=== PATIENT | female | born 1985 | race Two or more races ===

== ENCOUNTER 2016-11-18 22:54 | Inpatient (IN) | payer MEDICAID ==
[2016-11-18 23:16] VITALS: BMI 27.4
[2016-11-19] MEDS ORDERED: LACTATED RINGERS 1,000 ML IV PRN (00:05)
[2016-11-19] MEDS ORDERED: OXYTOCIN IN LR 500 ML IV ONE ×2 (00:05→00:43)
[2016-11-19] MEDS ORDERED: IV START KIT ONE (00:05)
[2016-11-19] MEDS ORDERED: SODIUM CHLORIDE 0.9% FLUSH 20 ML ONE (00:06)
[2016-11-19 00:28] LABS: HEMATOCRIT 37.3 % (37.0-47.0); HEMOGLOBIN 12.8 gm/l (12.0-16.0); MEAN CELL VOLUME 96.1 fl (81.0-99.0); MEAN CORPUSCULAR HGB CONC 34.3 g/dl (33.0-37.0); RED CELL DISTRIBUTION WIDTH 13.9 % (11.5-14.5)
--- NOTE | 2016-11-19 00:30 | PDOC36 ---
Provider Note Subject: cc: Admission H&P HPI: 31 y.o. year old LUCIUS 11/15/2016, by Ultrasound at 40w4d. ROM at 1700 and increasing ctx. REVIEW OF SYSTEMS GENERAL: No fever or headache EYES: No double or blurry vision. CARDIOVASCULAR: No chest pain. RESPIRATORY: No severe shortness of breath or cough. GASTROINTESTINAL: No nausea or vomiting or right upper quadrant pain. PSYCHIATRIC: No anxiety or depression. PROBLEMS Patient Active Problem List Diagnosis Date Noted Abnormal glucose in , antepartum 05/04/2016 Supervision of normal in second trimester 05/04/2016 OB HISTORY #: 1, Date: 01/08/11, Sex: Male, Weight: 3.714 kg (8 lb 3 oz), GA: 42w0d, Delivery: Vaginal, Spontaneous Delivery, Apgar1: 9, Apgar5: 9, Living: Yes, Comments: None #: 2, Date: 04/30/13, Sex: Male, Weight: 3.771 kg (8 lb 5 oz), GA: 39w0d, Delivery: Vaginal, Spontaneous Delivery, Apgar1: 9, Apgar5: 9, Living: Yes, Comments: None #: 3, Current Dating Dating Summary Working LUCIUS: 11/15/16 set by DINA Macias on 07/06/16 based on Ultrasound on 06/30/16 Based On LUCIUS GA Dif Comments GA Cyc Lut BC Entered By Date Last Menstrual Period on 01/30/16 (Approximate) 11/05/16 +1w3d DINA Macias 07/06/16 Ultrasound on 06/30/16 11/15/16 Working Changes EDC. Female. Anterior, grade 1 placenta and low. Survey was normal. Re-scanned in 8 weeks to confirm dates and to recheck placenta. 20w2d DINA Macias 07/06/16 Ultrasound on 08/30/16 11/12/16 +3d Consistent with 1st ultrasound. Female. Normal fluid. Anterior placenta, grade 1 and no previa. Transverse presentation. Estimated weight 1359 g. 29w3d Kim Valles MD PSH No past surgical history SOC HX reports that she has never smoked. She has never used smokeless tobacco. She reports that she does not drink alcohol or use illicit drugs. ALL No Known Allergies MEDICATIONS Current outpatient prescriptions: 27-1 MG tablet, Take 1 tablet by mouth daily., Disp: 100 each, Rfl: 3 PHYSICAL EXAMINATION VITAL SIGNS: VSS Estimated body mass index is 28.00 kg/(m^2) as calculated from the following: Height as of 11/15/16: 1.62 m (5' 3.78"). Weight as of 11/16/16: 73.483 kg (162 lb). Total weight gain is 14.515 kg (32 lb) FHT: 130's baseline, mod kellen [place]: Q3-5 min SVE: 6/90/0 GENERAL: No distress CARDIOVASCULAR: Regular rate and rhythm, no murmur RESPIRATORY: Clear to auscultation bilaterally, respiratory effort is nonlabored at rest. GASTROINTESTINAL: Gravid no fundal tenderness LABS & STUDIES O+ Antibody- Rubella Immune Hep B- HIV- GC/Chlamydia- Trep- glucola elevated but GTT wnl Hgb 11.8 GBS neg ASSESSMENT 31 y.o. year old LUCIUS 11/15/2016, by Ultrasound at 40w4d who presents with AROM and active labor. PLAN Labor- expectant management. FWB- category 1 GBS neg RH+ Pain natural.
[2016-11-19] MEDS ORDERED: LIDOCAINE 1% (PRES FREE) 30 ML VIAL ONE (00:42)
[2016-11-19] MEDS ORDERED: OXYTOCIN 10 UNITS/ML VIAL ONE (00:42)
[2016-11-19] MEDS ORDERED: MINERAL OIL 25 ML BOT ONE (00:42)
[2016-11-19] MEDS ORDERED: PUMP TUBING ONE (00:42)
[2016-11-19] MEDS ORDERED: LIDOCAINE Viscous 2% 15 ML UDCUP ONE (00:42)
[2016-11-19] MEDS ORDERED: MENTHOL/CETYLPYRD 1 EACH LOZENGE PO PRN (00:58)
--- NOTE | 2016-11-19 02:10 | PCMDEL ---
Delivery Note - Labor 1st stage (hr/min):: 1hour 36 min 2nd stage (hr/min):: 3 min 3rd stage (hr/min):: 5 min Total (hr/min):: 2 hours Pushed (hr/min):: 3 min - Delivery Delivery (Date): 11/19/16 Delivery (Time): 01:54 Presentation: Cephalic Position: OA Umbilical Cord: 3 Vessel Delayed Cord Clamping:: < 1-2 min 1 Minute Total: 9 5 Minute Total: 9 Placenta:: intact Comments:: Presented in active labor and progressed on normal labor curve. Pushed effectively to deliver via without complications. Vigorous . Delayed cord clamping x 90 sec. Active third stage with pitocin and fundal massage.
[2016-11-19] MEDS ORDERED: BENZOCAINE/MENTHOL 60 APPLIC/BOT TP PRN (02:11)
[2016-11-19] MEDS ORDERED: MAGNESIUM HYDROXIDE 30 ML UDCUP PO PRN (02:11)
[2016-11-19] MEDS ORDERED: HYDROCODONE/ACETAMINOPHEN 5/325MG TABLET PO PRN (02:11)
[2016-11-19] MEDS ORDERED: LANOLIN 50 APPLIC/7G TUBE TP PRN (02:11)
[2016-11-19] MEDS ORDERED: DOCUSATE SODIUM 100 MG CAPSULE PO PRN (02:11)
[2016-11-19] MEDS: MENTHOL/CETYLPYRD 1 EACH LOZENGE PO PRN ×2 (03:08→20:24)
[2016-11-19] MEDS: IBUPROFEN 800 MG TABLET PO PRN (20:24)
[2016-11-20] MEDS: MENTHOL/CETYLPYRD 1 EACH LOZENGE PO PRN ×2 (00:57→06:07)
[2016-11-20] MEDS: IBUPROFEN 800 MG TABLET PO PRN (06:07)
[2016-11-20 06:26] LABS: HEMOGLOBIN 11.5 gm/l (12.0-16.0)
--- NOTE | 2016-11-20 11:10 | PDOC44 ---
- Subjective Day: 1 Reports Flatus, Reports Pain Tolerable, Reports , Reports Lochia Light, Reports Tolerating Regular Diet, Denies Nausea, Denies Fever - Objective Temp Pulse Resp BP Pulse Ox 97.6 F 62 16 97/56 11/20/16 07:47 11/20/16 07:47 11/20/16 07:47 11/20/16 07:47 Lab Results 11/20/16 05:30 Hgb 11.5 L Hct 35.0 L Current Medications Generic Name Dose Route Start Last Admin Trade Name Freq PRN Reason Stop Dose Admin Acetaminophen/Hydrocodone Bitart 1 - 2 tab 11/19/16 02:11 Hanna 5/325 PO Q4H PRN Pain (Moderate) Benzocaine/Menthol 1 applic 11/19/16 02:11 Dermoplast TP PRN PRN Patient Comfort Benzocaine/Menthol 1 each 11/19/16 02:49 11/20/16 06:07 Cepacol PO 1 each Q2H PRN Administration Sore Throat Docusate Sodium 100 mg 11/19/16 02:11 11/19/16 20:24 Colace PO 100 mg DAILY PRN Administration Comfort Emollient Ointment 1 applic 11/19/16 02:11 11/19/16 20:57 Ryw-Q-Cjtprl TP 1 tube PRN PRN Administration sore nipples Ibuprofen 800 mg 11/19/16 02:11 11/20/16 06:07 Motrin PO 800 mg Q6H PRN Administration Pain (Mild) Magnesium Hydroxide 30 ml 11/19/16 02:11 Milk Of Magnesia PO BEDTIME PRN Constipation Sodium Chloride 10 ml 11/19/16 02:11 11/19/16 03:08 Normal Saline 10ml Flush IV 10 ml PRN PRN Administration IV Flush - Physical Exam General: Afebrile, No Acute Distress Psych/Mental Status: Mood/Affect Appropriate, Bonding Well Neurological: Grossly Intact, Alert HEENT: Atraumatic, EOMI Lungs: Clear to Auscultation Bilaterally, Normal Air Movement Cardiovascular: Regular Rate and Rhythm, Normal S1, Normal S2, No Murmur Breast: Soft, Skin intact Fundus: Firm, Midline, Below Umbilicus - Problems:Assessment/Plan (1) Normal vaginal delivery Status: AcuteAssessment/Plan: PPD#1 , doing well Routine pp care without difficulty Desires dc home today Disposition: Stable, Anticipate DC to Home
[2016-11-20 15:37] VITALS: BP 104/62
== END 2016-11-20 15:25 | disposition home or self-care (01) | DRG 775 ==
LOC: FBC 22:54 → FBCOUT 22:54 → FBC 23:40 → FBCOUT 23:40
PROVIDERS: ADMIT Family Medicine; ATTEND Family Medicine
PROC: 10E0XZZ Delivery of Products of Conception, External Approach (ICD-10-PCS; principal; 2016-11-19)
DX: O48.0 Post-term pregnancy (principal); O62.3 Precipitate labor; Z3A.40 40 weeks gestation of pregnancy; Z37.0 Single live birth